=== PATIENT | male | born 1990 | race Caucasian/White ===

== ENCOUNTER → 2017-06-03 | Outpatient (CLI) | payer OTHER ==
[~2017-06-03] VITALS: Ht 152.4 cm; Wt 72.6 kg
[~2017-06-03] MED LIST: DOLOGESIC CAPSU1 CAP PO; FLOVENT 110MCG7.9 GM IH; OSEL75CA PO; PROVENTIL HFA6.7 GM IH; TUSICOF LIQUID120 ML PO; ZYNCOF 20-400120 ML PO
== END | disposition home or self-care (01) ==
LOC: PPHC 10:16
DX: H10.89 Other conjunctivitis (principal)

== ENCOUNTER 2017-07-01 07:01 | Inpatient (IN) | payer OTHER ==
[~2017-07-01] VITALS: Ht 170.2 cm; Wt 70.3 kg
== END 2017-07-02 13:08 | disposition home or self-care (01) | DRG 343 ==
LOC: ER 07:01 → SEC-K 16:28 → O/R 18:09 → SURH 19:38
PROVIDERS: Surgery
PROC: BW21ZZZ Computerized Tomography (CT Scan) of Abdomen and Pelvis (ICD-10-PCS; 2017-07-01)
PROC: BW21Y0Z Computerized Tomography (CT Scan) of Abdomen and Pelvis using Other Contrast, Unenhanced and Enhanced (ICD-10-PCS; 2017-07-01)
PROC: 0DTJ4ZZ Resection of Appendix, Percutaneous Endoscopic Approach (ICD-10-PCS; principal; 2017-07-01 17:00)
DX: K35.89 Other acute appendicitis (principal)

== ENCOUNTER → 2018-06-01 | Emergency (ER) | payer OTHER ==
[~2018-06-01] VITALS: Ht 170.2 cm; Wt 67.6 kg
[~2018-06-01] MED LIST changes: +INTESTINEX680 M1 PO; +LOPERAMIDE2 M1 PO; +PEPCID AC20 MG PO; +ZOFRAN ODT4 MG SL
== END | disposition home or self-care (01) ==
LOC: ER 17:43 → EMR PED 17:55
DX: K52.9 Noninfective gastroenteritis and colitis, unspecified (principal); E86.0 Dehydration